=== PATIENT | male | born 2000 | race Two or more races ===

== ENCOUNTER 2018-12-27 15:32 | Emergency (ER) | payer MEDICAID ==
[~2018-12-27] VITALS: Ht 182.9 cm; Wt 89.0 kg
[2018-12-27 18:10] VITALS: BP 127/74
== END 2018-12-27 18:11 | disposition home or self-care (01) ==
LOC: ER 15:32
DX: S01.81XA Laceration without foreign body of other part of head, initial encounter (principal); H72.91 Unspecified perforation of tympanic membrane, right ear; W18.39XA Other fall on same level, initial encounter; Y93.89 Activity, other specified; Y92.89 Other specified places as the place of occurrence of the external cause; R03.0 Elevated blood-pressure reading, without diagnosis of hypertension
CPT/HCPCS: 12013; 99283